=== PATIENT | male | born 1965 | race Caucasian/White ===

== ENCOUNTER 2024-03-22 21:08 | Emergency (ER) | payer SELFPAY ==
[~2024-03-22] VITALS: Ht 172.7 cm; Wt 65.8 kg
[2024-03-22 21:34] VITALS: TEMP 98.2
[2024-03-22] MEDS ORDERED: TDAP [DIPH/PERTUSSIS/TET] 0.5 ML VIAL IM ONE (21:45)
[2024-03-22] MEDS ORDERED: IBUPROFEN 400 MG TABLET ONE (21:45)
[2024-03-22] MEDS: IBUPROFEN 400 MG TABLET PO ONE (21:46)
[2024-03-22] MEDS: TDAP [DIPH/PERTUSSIS/TET] 0.5 ML VIAL IM ONE (21:47)
[2024-03-22 22:27] VITALS: BP 127/74; O2SAT 99
== END 2024-03-22 22:27 | disposition home or self-care (01) ==
LOC: ER 21:13
DX: S40.012A Contusion of left shoulder, initial encounter (principal); V89.2XXA Person injured in unspecified motor-vehicle accident, traffic, initial encounter; Y93.89 Activity, other specified; Y92.89 Other specified places as the place of occurrence of the external cause; Y99.8 Other external cause status
CPT/HCPCS: 73030-TC; 90715